=== PATIENT | female | born 1985 | race Two or more races ===

== ENCOUNTER 2024-03-24 03:01 | Emergency (ER) | payer MEDICAID, SELFPAY ==
[2024-03-24 03:02] VITALS: BMI 31.3
[2024-03-24 03:22] VITALS: BP 129/81; PULSE 61; RESP 17; TEMP 36.9; O2SAT 100
--- NOTE | 2024-03-24 03:27 | PD.EDRME ---
Rapid Medical Screening Exam RME Arrival date/time: 03/24/24 03:01 38 year old female present to ED for c/o of abd pain, diarrhea for 2 weeks I have greeted and performed a focused initial assessment of this patient. A comprehensive ED assessment and evaluation of the patient, analysis of all test results, and completion of the medical decision making process will be conducted by additional ED providers. Chief Complaint: Abdominal Pain Time Seen by Provider: 03/24/24 03:07 Vital signs: Vital Signs Temperature 98.5 F 03/24/24 03:22 Pulse Rate 61 03/24/24 03:22 Respiratory Rate 17 03/24/24 03:22 Blood Pressure 129/81 03/24/24 03:22 Pulse Oximetry (%) 100 03/24/24 03:22 Oxygen Delivery Method Room Air 03/24/24 03:22
--- NOTE | 2024-03-24 03:59 | XR_ITS ---
Examination: CT abdomen with intravenous contrast CT pelvis with intravenous contrast 2-D coronal reconstructions 2-D sagittal reconstructions Date and time of exam:March 24, 2024 at 0528 hrs. Comparison August 23, 2009 Indications: Abdominal pain diarrhea 2 weeks. CTDI: vol (mGy) 16.80 DLP: (mGycm) 667 Technique: Multiple axial sections of the abdomen and pelvis have been obtained. 64 slice high-resolution scanner used. 3 mm axial sections have been obtained, post intravenous injection 60 cc [id number] 2-D sagittal, coronal reconstructions obtained. Low dose protocols were performed. One or more of the following dose reduction techniques were used; automated exposure control, adjustment of the mA and/or KV according to patient size, use of iterative reconstruction technique. Findings: No focal liver or splenic lesions The gallbladder is mildly distended no stones or wall thickening No pancreatic or adrenal mass No renal or ureteral calculi Abnormal fluid distended small bowel loops in the mid abdomen for instance image 105 Some of the small bowel loops, axial image 142 demonstrate wall thickening Normal appendix Anteverted uterus Urinary bladder intact Advanced disc narrowing L5-S1 Impression: Distended gallbladder, recommend hepatobiliary sonography follow-up Abnormal fluid distended small bowel loops with wall thickening involving the small bowel loops, differential would include enteritis such as Crohn's disease, early small bowel obstruction, clinical correlation advised Normal appendix No diverticulitis
[2024-03-24] MEDS: SODIUM CHLORIDE 0.9% 1000 ML 1,000 ML 999 ML IV (04:08)
[2024-03-24] MEDS: METOCLOPRAMIDE INJ 5 MG/ML VIAL 2 ML 10 MG IVP (04:08)
[2024-03-24] MEDS: MG HYD/AL HYD/SIME (Maalox Reg) SUSP 30 ML UDC PO (04:09)
[2024-03-24 04:25] LABS: Collection Type, Urine Voided
[2024-03-24] MEDS: MORPHINE SULF INJ 10 MG/ML VIAL 5 MG IVP (04:35)
[2024-03-24 04:54] LABS: Alanine Aminotransferase 14 U/L (10-49); Albumin, Serum 4.8 gm/dL (3.5-5.0); Albumin/Globulin Ratio 1.5 (1.2-2.2); Alkaline Phosphatase 76 U/L (46-116); Anion Gap 8 (7-16); Aspartate Amino Transferase 21 U/L (0-34); BUN/Creatinine Ratio 20 Ratio (12-20); Bilirubin,Total 0.6 mg/dL (0.3-1.2); Blood Urea Nitrogen 12 mg/dL (9-23); Calcium 9.7 mg/dL (8.3-10.6); Calcium (Corrected) 9.7 mg/dL (8.5-10.1); Carbon Dioxide 25.3 mMol/L (20.0-31.0); Chloride 105 mMol/L (98-107); Creatinine (Component) 0.6 mg/dL (0.6-1.3); Estimated Creatinine Clearance 109.5 mL/min (>60); Globulin 3.2 gm/dL (2.3-3.5); Glucose 101 mg/dL (74-106); Lipase 33 U/L (12-53); Osmolality,Calculated 275 (275-295); Potassium 3.5 mMol/L (3.4-5.1); Sodium 138 mMol/L (136-145); eGFR > 60 See Note
[2024-03-24 04:56] LABS: Bacteria,Urine Rare; Bilirubin,Urine Negative (Negative); Blood,Urine 2+ (Negative); Clarity,Urine Turbid (Clear/Hazy); Color,Urine Yellow (Lt Yel-Yel); Glucose, Urine Negative (Negative); Ketones,Urine Trace (Negative); Leukocyte Esterase,Urine Positive (Negative); Nitrite,Urine Negative (Negative); Protein,Urine 2+ (Neg - Trace); RBC,Urine 6 /hpf (0-3); Squamous Epithelial Cell,Urine 21 /hpf (0-5); WBC,Urine 12 /hpf (0-5)
[2024-03-24 04:59] LABS: HCG,Qualitative Serum Negative
[2024-03-24 05:18] LABS: Specific Gravity,Urine 1.035 (1.001-1.035)
[2024-03-24 05:31] LABS: Basophils % (Auto) 0 % (0-2.5); Eosinophils # (Auto) 0.1 Thou/mm3 (0.0-0.5); Eosinophils % (Auto) 1 % (0-10); Hematocrit 36.6 % (36.0-46.0); Hemoglobin 12.6 g/dL (12.0-16.0); Immature Granulocytes % (Auto) 1 % (0-0); Lymphocytes # (Auto) 1.4 Thou/mm3 (1.0-4.8); Lymphocytes % (Auto) 9 % (10-50); Mean Corpuscular HGB Conc 34.4 g/dl (31.0-37.0); Mean Corpuscular Hemoglobin 30.7 pg (25.0-35.0); Mean Corpuscular Volume 89 fL (80-100); Monocytes # (Auto) 1.1 Thou/mm3 (0.0-0.8); Monocytes % (Auto) 7 % (0-12); Neutrophils % (Auto) 83 % (37-80); Nucleated Red Blood Cell % 0 /100 WBC (0); Platelet Count 260 Thou/mm3 (140-440); RDW Standard Deviation 41.2 fL (36.4-46.3); White Blood Count 15.7 Thou/mm3 (3.6-11.0)
[2024-03-24 06:32] VITALS: BP 97/60; PULSE 63; RESP 16; TEMP 36.8; O2SAT 99
--- NOTE | 2024-03-24 07:00 | PRELIM_ITS ---
CT scan of the abdomen and pelvis with intravenous contrast (axial sections with sagittal and coronal reformats). March 24, 2024 0528 hoursClinical History: Abdominal pain for 2 weeks, + diarrhea. R/ o colitisComparison: No prior study is available for comparison. Findings: The lung bases are clear.T he liver, gallbladder, pancreas, spleen, kidneys and adrenals are unremarkable.There are enhancing in traluminal polypoid masses in the ileum (images 107, 110 and 122, series 2), the largest measuring 1. 2 cm in diameter. The masses cause narrowing of the small bowel lumen. Associated fluid-filled promin ent small bowel loops are seen in the mid and lower abdomen are seen. The appendix is within normal l imits. There is no mesenteric or retroperitoneal adenopathy.The urinary bladder demonstrates mild wal l thickening with subtle perivesical fat stranding. The uterus and adnexa are unremarkable There is no free fluid or free air.The osseous structures are unremarkable.Impression:1. Findings consistent w ith partial small bowel obstruction due to multiple intraluminal polypoid masses in the ileum. Recomm end clinical correlation and followup. 2. Possible mild acute cystitis 3. Other findings as described above.Discussion Details: Results verbally communicated to : Dr. Dickson at 06:43 AM 03/24/2024 Rep ort Electronically Signed By: Carrillo Chen 03/24/2024 6:59:57 AM [EST]
--- NOTE | 2024-03-24 07:24 | PC.NURSE ---
Received report from Mark DAS and assumed care of patient. Patient A&Ox4 and states pain 4. Pending CT and C-diff results
--- NOTE | 2024-03-24 07:33 | EDNOTE_ITS ---
ED Abdominal Pain RME/HPI General Chief Complaint: Abdominal Pain Stated complaint: ABD PAIN X2 WEEKS, WORSEN TODAY Time seen by provider: 03/24/24 03:07 Arrival date/time: 03/24/24 03:01 RME / HPI RME / HPI narrative: 03/24/24 03:01 38 year old female present to ED for c/o of abd pain, diarrhea for 2 weeks I have greeted and performed a focused initial assessment of this patient. A comprehensive ED assessment and evaluation of the patient, analysis of all test results, and completion of the medical decision making process will be conducted by additional ED providers. DR. LEW MAIN ED EVALUATION 38 year old female with no stated chronic medical history presents to the ED for complaint of abdominal pain today. States ~ 2 weeks ago she has experienced similar abdominal pain and had consulted with her PCP who diagnosed her with a virus and prescribed Tylenol. States the pain had improved however in the last 2 days pain is waxing and waning. Described as burning in sensation that is located most to the left side of abdomen. Accompanied by nausea, nonbloody vomiting, and 4 episodes of nonbloody diarrhea. Denies any history of similar pain prior to 2 weeks ago. Denies fevers, chills, sore throat, chest pain, cough, shortness of breath, or urinary symptoms. Related Data Previous Rx's ?Medication ?Instructions ?Recorded ibuprofen 600 mg tablet 600 mg PO Q6H PRN pain #30 tabs 11/30/18 Allergies Allergy/AdvReac Type Severity Reaction Status Date / Time No Known Allergies Allergy Verified 03/24/24 03:04 Review of Systems Review of Systems Narrative Review of Systems: Gen: No fever, no chills, no weight loss EYES: No discharge, no visual changes, no pain HEENT: No ear pain, no congestion, no sore throat PULM: No shortness of breath, no cough, no congestion CV: No chest pain, no dyspnea on exertion, no palpitations GI: +N/V, + diarrhea, +pain, no constipation : No frequency, no urgency,? no dysuria Musc/skel: No joint pain, no back pain Skin: No rash. Neuro: No weakness, no headache Past Medical History Past Medical History CARDIAC: Negative Cardiac Disorders or Congestive Heart Failure RESPIRATORY: Negative Chronic Obstructive Pulmonary Disease (COPD) or Asthma GENITOURINARY: Negative Renal Disease REPRODUCTIVE: Positive Previous Pregnancies ENDOCRINE: Negative Diabetes Mellitus Type 1 or Diabetes Mellitus Type 2 HEMATOLOGIC: Negative Sickle Cell Disease Surgical History SURGICAL: Positive Section Social History SMOKING STATUS: Never smoker SUBSTANCE USE: does not use ED Exam Narrative Physical exam: GENERAL: In general the patient is awake, interactive, [facility] HEAD/EYES/EARS/NOSE/THROAT: normo-cephalic, atraumatic, mucus membranes are moist, anicteric, palpebral conjunctiva is pink, trachea is midline. no lymphadenopathy. no trismus. CARDIOVASCULAR: regular rate and regular rhythm, no murmurs, heart sounds are not distant, strong pulses in all four extremities that are equal and symmetric bilateral upper and lower extremities, normal capillary refill. CHEST/PULMONARY: normal chest rise and fall, good air movement, clear to auscultation bilaterally, normal inspiratory to expiratory ratios without evidence of respiratory distress. ABDOMEN: soft, not tender, no masses appreciated BACK: normal range of motion without pain. NEUROLOGICAL: cranio-facial features are symmetric, moves all four extremities equally without obvious limitations or weakness. EXTREMITY: no tenderness to palpation over the long bones or large joints of the bilateral upper and lower extremities, no joint swelling, no joint erythema, no signs of trauma, no unilateral leg swelling and no peripheral edema. SKIN: warm, dry, well-perfused, no jaundice, no rash, no telangiectasias or petechia. PSYCH: calm, cooperative, no evidence of psychosis or agitation Course Quality Measures none Orders Category Date Time Status CT Screening NOW Care 03/24/24 03:59 Completed IV [Insert IV] STAT Care 03/24/24 03:[address] abdomen pelvis w con Stat Exams 03/24/24 03:59 Completed CBC Stat Lab 03/24/24 04:58 Completed CMP [Comprehensive Metabolic Panel] Stat Lab 03/24/24 03:45 Completed HCG,Qualitative Serum Stat Lab 03/24/24 03:45 Completed Lipase Stat Lab 03/24/24 03:45 Completed Stool Culture Stat Lab 03/24/24 04:00 Received UA [Urinalysis] Stat Lab 03/24/24 04:00 Completed Urine Culture Stat Lab 03/24/24 04:00 Received c diff [Clostridium Difficile PCR] Stat Lab 03/24/24 04:00 Completed Metoclopramide Inj [Reglan Inj] Med 03/24/24 03:26 Discontinued 10 mg IVP X1 ONE Morphine Inj Med 03/24/24 08:51 Discontinued 4 mg IVP X1 ONE Morphine Inj Med 03/24/24 04:32 Discontinued 5 mg IVP X1 ONE Ondansetron Inj [Zofran Inj] Med 03/24/24 08:51 Discontinued 4 mg IV X1 ONE Sodium Chloride 0.9% 1000 ml [Ns] 1,000 ml Med 03/24/24 03:26 Discontinued IV 999 mls/hr mg Hyd/Al Hyd/Farooq Susp [Maalox Susp] Med 03/24/24 03:25 Discontinued 30 ml PO X1 ONE Reevaluation(s) Reevaluation #1: Patient reports her pain improved after Morphine. Time: 06:45 Reevaluation #2: Patient remains clinically stable throughout the emergency department visit. We reviewed all the results, analysis, and treatment plans. Patient is amenable to discharge. Strict return precautions were outlined. Patient was discharged in stable condition. Time: 10:50 Vital Signs Vital signs: Vital Signs Temperature 98.5 F 03/24/24 03:22 Pulse Rate 61 03/24/24 03:22 Respiratory Rate 17 03/24/24 03:22 Blood Pressure 129/81 03/24/24 03:22 Pulse Oximetry (%) 100 03/24/24 03:22 Oxygen Delivery Method Room Air 03/24/24 03:22 Pulse ox is 100% on room air which is adequate. Abdominal Pain MDM MDM Narrative MDM Narrative:: Caridad Eric am scribing for and in the presence of Dr. Lew. Patient data External records reviewed:: [facility] previous records (I reviewed ED visit on 02/17/2020) Clinical information provided by:: patient Social determinants that could affect healthcare access:: none Patient has the following chronic illnesses:: No chronic medical hx reported How is presenting disease/condition affected by chronic disease/condition?: no chronic disease Evaluation data The following diagnostics were reviewed and interpreted by me:: lab results and radiology exam(s) Lab and/or radiology exams considered but not ordered:: None Interpretation Summary: Ordering Physician: Brendon Strauss PA-C Date of Service: 03/24/24 Procedure(s): CT abdomen pelvis w con Accession Number(s): [id number] cc: Jurgen Newell MD; Abelardo Martin MD; Brendon Strauss PA-C~ Examination: CT abdomen with intravenous contrast CT pelvis with intravenous contrast 2-D coronal reconstructions 2-D sagittal reconstructions Date and time of exam:March 24, 2024 at 0528 hrs. Comparison August 23, 2009 Indications: Abdominal pain diarrhea 2 weeks. CTDI: vol (mGy) 16.80 DLP: (mGycm) 667 Technique: Multiple axial sections of the abdomen and pelvis have been obtained. 64 slice high-resolution scanner used. 3 mm axial sections have been obtained, post intravenous injection 60 cc [id number] 2-D sagittal, coronal reconstructions obtained. Low dose protocols were performed. One or more of the following dose reduction techniques were used; automated exposure control, adjustment of the mA and/or KV according to patient size, use of iterative reconstruction technique. Findings: No focal liver or splenic lesions The gallbladder is mildly distended no stones or wall thickening No pancreatic or adrenal mass No renal or ureteral calculi Abnormal fluid distended small bowel loops in the mid abdomen for instance image 105 Some of the small bowel loops, axial image 142 demonstrate wall thickening Normal appendix Anteverted uterus Urinary bladder intact Advanced disc narrowing L5-S1 Impression: Distended gallbladder, recommend hepatobiliary sonography follow-up Abnormal fluid distended small bowel loops with wall thickening involving the small bowel loops, differential would include enteritis such as Crohn's disease, early small bowel obstruction, clinical correlation advised Normal appendix No diverticulitis Dictated By: Abelardo Martin MD Signed By: <Electronically signed by Abelardo Martin MD in OV> 03/24/24 0745 Medications / Prescriptions Medications or Prescriptions considered but not ordered:: None Medication administrations:: Medication Administration History Discontinued Medications Al Hydrox/Mg Hydrox/Simethicone (Mg Hyd/Al Hyd/Farooq (Maalox Reg) Susp 30 Ml Udc) 30 ml PO X1 ONE Stop: 03/24/24 03:26 Last Admin: 03/24/24 04:09 Dose: 30 ml Documented By: JEFFREY Sodium Chloride (Ns) 1,000 mls @ 999 mls/hr IV .Q1H1M ONE Stop: 03/24/24 04:26 Last Infusion: 03/24/24 05:10 Dose: Infused Documented By: Admin: 03/24/24 04:08 Dose: 999 mls/hr Documented By: JEFFREY Metoclopramide HCl (Metoclopramide Inj 5 Mg/Ml Vial 2 Ml) 10 mg IVP X1 ONE; Protocol Stop: 03/24/24 03:27 Last Admin: 03/24/24 04:08 Dose: 10 mg Documented By: JEFFREY Morphine Sulfate (Morphine Sulf Inj 10 Mg/Ml Vial) 5 mg IVP X1 ONE Stop: 03/24/24 04:33 Last Admin: 03/24/24 04:35 Dose: 5 mg Documented By: JEFFREY Morphine Sulfate (Morphine Sulf Inj 10 Mg/Ml Vial) 4 mg IVP X1 ONE Stop: 03/24/24 08:52 Last Admin: 03/24/24 09:08 Dose: 4 mg Documented By: VIOLETA Ondansetron HCl (Ondansetron Inj 2 Mg/Ml Inj 2 Ml) 4 mg IV X1 ONE; Protocol Stop: 03/24/24 08:52 Last Admin: 03/24/24 09:07 Dose: 4 mg Documented By: VIOLETA See above Consultations Consultation(s) initiated? (list below): Yes Consultation #1 (Physician, Specialty, Details): I spoke with teleradiologist Dr. Carrillo Chen regarding CT abdomen results. Time: 06:43 Diagnosis Differential diagnosis abdominal pain: abdominal pain, calculus of kidney, constipation, diverticulitis, gastroenteritis and small bowel obstruction Most likely diagnosis given after review of the tests above:: Colitis Admission Indicated Admission indicated?: not indicated Admission Request Was there a request for admission?: No Disposition Plan Disposition Plan: Discharge Discharge Attestation Discharge Attestation: The patient and all family members were given an opportunity to ask questions and understood the discharge instructions. Discharge instructions specifically effects, indications for sooner follow up or return to the emergency department, and the expected course of current diagnosis. Patient condition: Stable Discharge Plan Plan Patient Disposition: HOME (Self Care) Patient condition on transfer: Stable Prescriptions/Referrals Prescriptions/Med Rec: No Action ibuprofen 600 mg tablet 600 mg PO Q6H PRN (Reason: pain) Qty: 30 0RF Referrals: Jurgen Newell MD [Primary Care Provider] - In 1 week Problem List Clinical Impression: Colitis Patient/Caregiver Discharge Instructions Diet Instructions: Drink clear liquids for the next 24 to 48 hours. Follow-up with your primary care physician. Additional Instructions: You do have some Print Language: Georgian Stand Alone Forms: [email or web address] Info., Patient Portal Info Letter
[2024-03-24 08:26] VITALS: BP 110/61; PULSE 74; RESP 16; TEMP 37; O2SAT 98
--- NOTE | 2024-03-24 08:48 | PC.NURSE ---
PATIENT STATES PAIN 8/10. RECEIVED VERBAL ORDER FOR 4MG MORPHINE IV AND 4MG ZOFRAN IV.
[2024-03-24] MEDS: ONDANSETRON INJ 2 MG/ML INJ 2 ML 4 MG IV (09:07)
[2024-03-24] MEDS: MORPHINE SULF INJ 10 MG/ML VIAL 4 MG IVP (09:08)
[2024-03-24 09:59] LABS: Clostridium Difficile PCR Negative (Negative)
[2024-03-24 10:14] VITALS: BP 112/54; PULSE 61; RESP 16; TEMP 37; O2SAT 99
== END 2024-03-24 11:46 | disposition home or self-care (01) ==
PROVIDERS: Physician Assistant; Emergency Provider Emergency Medicine; PCP Family Medicine
DX: K52.9 Noninfective gastroenteritis and colitis, unspecified (principal)
CPT/HCPCS: 36415; 74177; 80053; 81001; 83690; 84703; 85025; 87015; 87045; 87046; 87077; 87086; 87493; 87899; 96361; 96374; 96375; 96376; 99285; A4649; J2270; J2405; J2765; J7030; Q9967; A9270